=== PATIENT | male | born 1960 | race African-American/Black ===

== ENCOUNTER → 2019-12-24 | Day surgery (SDC) | payer OTHER ==
[~2019-12-24] MED LIST: FISH OIL 1,0001 EAC2 PO; LOSARTAN POTAS100 MG PO; MIDAZOLAM HCL 2 MG/2 ML VIAL ONE; MULTI-VITAMIN1 EACH PO; OCUVITE EYE PL1 EACH PO; PROPOFOL IV EMULSION 10 MG/ML 50 ML VIAL ONE
[2019-12-24 12:00] VITALS: BP 125/73
== END | disposition home or self-care (01) ==
LOC: OR 09:48
PROVIDERS: ATTEND Internal Medicine
DX: K52.9 Noninfective gastroenteritis and colitis, unspecified (principal); E66.9 Obesity, unspecified; I10 Essential (primary) hypertension; R73.03 Prediabetes; F95.9 Tic disorder, unspecified; Z01.810 Encounter for preprocedural cardiovascular examination; Z87.891 Personal history of nicotine dependence
CPT/HCPCS: 45380; 93005; J2704; 45378; J2250